=== PATIENT | male | born 1945 | race Caucasian/White ===

== ENCOUNTER → 2019-07-03 | Outpatient (CLI) | payer MEDICARE, OTHER ==
--- NOTE | 2019-07-04 12:19 | CT ---
EXAM DESCRIPTION: Lumbar Spine: Computed Tomography. CLINICAL HISTORY: 74 years Male SPONDYLOSIS WITHOUT MYELOPATHY. Back pain. Surgery 2005. COMPARISON: None Available. TECHNIQUE: Spiral, axial 2.5 x 2.5 mm scans through the cervical spine without contrast. Coronal and sagittal 2.0 mm Reconstructions. No adverse reactions. Total Exam DLP: 834.81 mGy-cm. This exam was performed according to our departmental dose-optimization program which includes automated exposure control, adjustment of the mA and/or kV according to patient size and/or use of iterative reconstruction technique; to reduce radiation dose to as low as reasonably achievable (ALARA). FINDINGS: Unilateral transpedicular screws, on the left at S1 and L5 with unilateral left connecting kaylen. No significant bony abnormality around the screws or hardware. The left L5 pedicle is partially missing between the 2 screws. Arthrosis and fusion material in the left L5-S1 facet and arthrosis and hypertrophy of the left L4-L5 facet. Sclerosis of the L5-S1 endplates. Interbody fusion device in the left posterior L5-S1 disc space with partial subsidence into the inferior L5 endplate. Posterior disc space spurs abutting the ventral thecal sac. Anterior endplate ridging and bulging. Right foraminal moderate to severe narrowing and left foraminal stenosis L4-L5: Anterior disc bulge with anterior endplate ridging. Moderate loss of the disc space with degenerative gas within the disc including the posterior 4 mm bulging segment abutting the thecal sac. Moderate left facet hypertrophic arthrosis and ligament thickening. AP canal diameter 11 mm. Moderate hypertrophic left facet arthrosis. Moderate narrowing of the left foramen and borderline right foraminal stenosis. L3-L4: Minimal disc space loss mostly posterior. Posterior 4.5 mm bulge abutting the right paracentral thecal sac more than the midline. Also bulge into the right foramen contacting the exiting right L3 nerve. Minimal narrowing of the bilateral subarticular recesses. Bilateral hypertrophic facet arthrosis more left than right. AP canal diameter 11 mm. Mild narrowing left foramen moderate to severe narrowing right foramen. L2-L3: Disc space maintained. Minimal posterior broad-based bulge. Bilateral hypertrophic facet arthrosis more left than right. Thickening of the ligaments. AP canal diameter 11 mm. Mild to moderate narrowing of the right foramen and mild narrowing of the left foramen. L1-L2: Tiny posterior disc bulge. Bilateral hypertrophic facet arthrosis and ligament thickening. AP canal diameter 13 mm. Mild bilateral foraminal narrowing. T12-L1: Disc space maintained and no bulging of the disc. Bilateral mild facet arthrosis and ligaments are negative. Canal and foramina are patent. No compression type vertebral body fractures at any level. No abnormal paravertebral soft tissues. Atherosclerotic changes in the aorta and major branch vessels and proximal bilateral common iliac arteries are moderate. Mild dilation of the aorta at the level of the L3 vertebral body but maximum diameter is 2.3 cm. IMPRESSION: 1. Unilateral posterior pedicle screws and unilateral connecting kaylen on the left at L5-S1. Customary position and near-anatomic alignment. Left L5 pedicle between the screws is partially missing. Moderate loss of disc space. Interbody fusion device in the left posterior disc space with partial subsidence into the inferior L5 endplate. Left foraminal stenosis compromising the left L5 nerve. 2. Posterior bulging L4-5 disc with moderate central canal stenosis. Borderline right foraminal stenosis and possible compromise right L4 nerve. 3. Posterior 4.5 mm bulge L3-L4 abutting the right paracentral thecal sac and also contacting the exiting right L3 nerve in the foramen. Severe narrowing of the right foramen. Moderate right paracentral canal narrowing. Electronically signed by: Shan Wilson MD 07/04/2019 12:18 PM CDT
== END ==
LOC: CT 10:00
PROVIDERS: ATTEND Anesthesiology Pain Medicine
DX: M96.1 Postlaminectomy syndrome, not elsewhere classified (principal); M51.37 Other intervertebral disc degeneration, lumbosacral region; M47.817 Spondylosis without myelopathy or radiculopathy, lumbosacral region; M48.062 Spinal stenosis, lumbar region with neurogenic claudication; M51.86 Other intervertebral disc disorders, lumbar region; Z98.890 Other specified postprocedural states